=== PATIENT | male | born 1945 | race Two or more races ===

== ENCOUNTER 2017-02-09 07:18 | Inpatient (IN) | payer MEDICARE ==
[~2017-02-09] VITALS: Ht 172.7 cm; Wt 85.5 kg
[2017-02-09] MEDS ORDERED: ASPI325T PO (14:24)
[2017-02-09] MEDS ORDERED: GLIP5TAB8 PO (14:24)
[2017-02-09] MEDS ORDERED: LOVA20TA PO (14:24)
[2017-02-09] MEDS ORDERED: LISI20TA3 PO (14:24)
[2017-02-09] MEDS ORDERED: CLON0.1T PO (14:24)
[2017-02-09] MEDS ORDERED: METF1000 PO (14:24)
[2017-02-09] MEDS ORDERED: NOVONP2 SQ ×2 (14:27)
[2017-02-16] MEDS ORDERED: CINN500C12 (11:11)
[2017-02-16] MEDS ORDERED: FISH1000 PO (11:11)
[2017-02-16] MEDS ORDERED: SODIUM CHLORID 0.9% 500 ML IV PRN (11:15)
[2017-02-16] MEDS ORDERED: METOPROLOL TARTRATE 25 MG TAB PO PRN (11:15)
[2017-02-16] MEDS ORDERED: METRONIDAZOLE 500 MG/100 ML ISONTONIC SOLN IV SCH (11:15)
[2017-02-16] MEDS ORDERED: ALVIMOPAN 12 MG CAPSULE - On Call PO SCH (11:15)
[2017-02-16] MEDS ORDERED: ceFAZolin 1,000 MG/NS 100 ML IV SCH ×2 (11:15)
[2017-02-16] MEDS ORDERED: POVIDONE IODINE 5% (ANTISEPSIS KIT) 4 APPLICATIONS EACH NARE PRN (11:15)
[2017-02-16] MEDS ORDERED: INSULIN HUMAN REGULAR 1,000 UNITS/10 ML VIAL SQ PRN (11:15)
[2017-02-16] MEDS ORDERED: LACTATED RINGER'S 1000 ML IV PRN (11:15)
[2017-02-16] MEDS ORDERED: CHLORHEXIDINE GLUCONATE 2 % 1 PACK (2 CLOTHS) TOPICAL PRN (11:15)
[2017-02-16 11:17] VITALS: BP 157/90; PULSE 98; RESP 18; TEMP 98.2; O2SAT 97
--- NOTE | 2017-02-16 11:32 | PD.HP.UP ---
H&P Update Note The Pre-Admit History and Physical Examination regarding the above named patient was reviewed (including, but not limited to, vital signs, heart, lungs, co-morbid conditions), and upon re-examination it is noted that: the patient's condition has not significantly changed since the last examination. Miguel Burch MD Feb 16, 2017 11:32
[2017-02-16] MEDS ORDERED: KETAMINE HCL 500 MG/5 ML VIAL IV ONE (12:00)
[2017-02-16] MEDS ORDERED: PROPOFOL 200 MG/20 ML AMP IV ONE (12:00)
[2017-02-16] MEDS ORDERED: LACTATED RINGER'S 1000 ML INJ 2,000 ML IV ONE (12:00)
[2017-02-16] MEDS ORDERED: ONDANSETRON HCL 4 MG/2 ML VIAL IV PUSH ONE (12:00)
[2017-02-16] MEDS ORDERED: ACETAMINOPHEN 1000 MG/100 ML VIAL IV ONE (12:28)
[2017-02-16] MEDS ORDERED: SUGAMMADEX SODIUM 200 MG/2 ML VIAL IV PUSH ONE ×2 (12:29)
[2017-02-16] MEDS ORDERED: HYDROmorphone HCL PF 2 MG/ML VIAL ONE (12:29)
--- NOTE | 2017-02-16 12:50 | PD.WCN.NOT ---
Wound Consult Description: Vocera message from Dr Burch requesting marking patient for colostomy. Communicated with: LAVERN Sawyer Mariya Patient Dr Burch Recommendation: Site marked is upper quadrant on left abdomen, however recommended to Dr Burch that stoma be placed distally from this marked area further under rib cage. Difficult marking due to patients protuberant abdomen, with creases while sitting, small infraumbilical roll, and coughing was of little help in locating rectus muscles. Additional Information: Patient seen prior to surgery on Ostomy Surgeon: Miguel Burch MD Date of Surgery: Feb 16, 2017 Educated patient on: Patient and Mariya were educated on the marking site chosen, however if physician was not able to place ostomy where music writer marked, physician would decide on the placement. Additional information Patient seen on with Mariya at bedside for assessment of patients abdomen laying, coughing, sitting, and standing. Marking on left upper abdomen after speaking with patient and assessing patients abdomen, lifestyle, hobbies, clothing, etc. Patient states that his " will be taking care of the bag, if it wasn't for her I wouldn't be here, because I feel great". Elmira Terry [facility] Feb 16, 2017 12:50
[2017-02-16] MEDS ORDERED: ACETAMINOPHEN/HYDROcodone 325 MG/5 MG TAB PO PRN (15:45)
[2017-02-16] MEDS ORDERED: SODIUM CHLORIDE 0.9% FLUSH 5 ML FLUSH IVF PRN (15:45)
[2017-02-16] MEDS ORDERED: ENALAPRILAT 2.5 MG/2 ML VIAL IV PRN (15:45)
[2017-02-16] MEDS ORDERED: KETOROLAC TROMETHAMINE 30 MG/ML (IVP) VIAL IVP PRN (15:45)
[2017-02-16] MEDS ORDERED: ACETAMINOPHEN 325 MG TAB PO PRN (15:45)
[2017-02-16] MEDS ORDERED: NALOXONE HCL 0.4 MG/ML AMP IV PRN (15:45)
[2017-02-16] MEDS ORDERED: POTASSIUM CHLOR 40 MEQ PREMIX 100 ML IV PRN (15:45)
[2017-02-16] MEDS ORDERED: Post-op Orders (for Pharmacy) MISC XX ONE (15:45)
[2017-02-16] MEDS ORDERED: BENZOCAINE 6 MG/MENTHOL 10 MG LOZENGE BUCCAL PRN (15:45)
[2017-02-16] MEDS ORDERED: ENALAPRILAT 1.25 MG/ML VIAL IV PRN (15:45)
[2017-02-16] MEDS ORDERED: POTASSIUM CHLOR 20 MEQ PREMIX 100 ML IV PRN (15:45)
[2017-02-16] MEDS ORDERED: ONDANSETRON HCL 4 MG/2 ML VIAL IV PRN (15:45)
[2017-02-16] MEDS ORDERED: MIDAZOLAM HCL 2 MG/2 ML VIAL ONE (15:52)
[2017-02-16] MEDS ORDERED: fentaNYL CITRATE 250 MCG/5 ML AMP ONE (15:53)
[2017-02-16] MEDS: D5-NS + KCL 20 MEQ INJ 1,000 ML IV SCH (16:00)
[2017-02-16] MEDS: MORPHINE SULFATE 30 MG/30 ML PCA IV SCH (16:15)
[2017-02-16] MEDS ORDERED: *morphine SULFATE 8 MG/ML PERIprocedure ONLY ONE ×2 (16:26→16:44)
[2017-02-16] MEDS: metroNIDAZOLE 500 MG INJ 100 ML IV SCH (20:59)
[2017-02-16] MEDS: METOCLOPRAMIDE HCL 10 MG/2 ML VIAL IVS SCH (20:59)
[2017-02-16] MEDS: SODIUM CHLORIDE 0.9% FLUSH 5 ML FLUSH IVF SCH (21:00)
[2017-02-16 22:00] VITALS: PULSE 104
[2017-02-16 23:00] VITALS: BP 125/84; PULSE 101; PULSE 94; RESP 18; TEMP 98.2; O2SAT 97
[2017-02-17] VITALS (24 sets, daily range): BP systolic 107–165; BP diastolic 57–99; PULSE 98–138; RESP 18–20; TEMP 97.4–98.7; O2SAT 90–97
[2017-02-17] MEDS ORDERED: diphenhydrAMINE HCL 25 MG CAP PO PRN (00:30)
[2017-02-17] MEDS: D5-NS + KCL 20 MEQ INJ 1,000 ML IV SCH ×4 (03:27→19:45)
[2017-02-17] MEDS: metroNIDAZOLE 500 MG INJ 100 ML IV SCH ×2 (04:40→13:36)
[2017-02-17] MEDS: PCA - TOTAL MG MORPHINE DELIVERED PER SHIFT SCH ×4 (06:00→22:00)
[2017-02-17 07:07] LABS: AUTOMATED NEUTROPHIL # 9.2 TH/MM3 (1.8-7.7); HEMO FLAGS DIFF FINAL; LYMPH % 3.5 % (9.0-44.0); LYMPHOCYTE # 0.4 TH/MM3 (1.0-4.8); MEAN CELL VOLUME 92.8 FL (80.0-100.0); MEAN CORPUSCULAR HGB CONC 33.4 % (32.0-36.0); MONO % 9.4 % (0.0-8.0); NEUT % 87.1 % (16.0-70.0); PLATELET COUNT 178 TH/MM3 (150-450); RED BLOOD COUNT 4.09 MIL/MM3 (4.50-5.90); RED CELL DISTRIBUTION WIDTH 15.5 % (11.6-17.2); WHITE BLOOD COUNT 10.6 TH/MM3 (4.0-11.0)
[2017-02-17 07:30] LABS: BICARBONATE 25.1 MEQ/L (21.0-32.0); POTASSIUM 4.4 MEQ/L (3.5-5.1)
--- NOTE | 2017-02-17 07:42 | HHI.PR ---
Subjective Remarks C/R Surg POD #1 afebnrile, VSS UO good OSBALDO min Objective - Vital Signs Date Time Temp Pulse Resp B/P Pulse Ox O2 Delivery O2 Flow Rate FiO2 02/17/17 06:00 16 02/17/17 05:00 105 02/17/17 04:19 98.1 147/95 96 02/17/17 03:15 Nasal Cannula 2.00 Result Diagram: 02/17/17 0610 02/17/17 0610 Objective Remarks PE alert Abd - soft, stoma pink, wound dry A/P Assessment and Plan Imp: stable post-op OOB decr IVF tx to floor Miguel Burch MD Feb 17, 2017 07:42
--- NOTE | 2017-02-17 07:46 | HHI.FF ---
Face to Face Verification Diagnosis: (1) Rectal cancer Physical Therapy Order: Evaluate and Treat, Improve ambulation, Strength and gait training Home Health Nursing Order: Medical education Signs/symptoms of disease process Wound care and dressing changes Instructions: stoma teaching I have seen patient Tutu Sherwood on 02/17/17. My clinical findings support the need for the requested home health care services because: Ltd mobility - disease progression Deconditioned w/ increased weakness Limited ability to care for self High risk of falls I certify that my clinical findings support that this patient is homebound because: Post-op weakness Unable to use public transportation Miguel Burch MD Feb 17, 2017 07:46
[2017-02-17] MEDS: PANTOPRAZOLE SODIUM 40 MG VIAL IVP SCH (09:00)
[2017-02-17] MEDS: SODIUM CHLORIDE 0.9% FLUSH 5 ML FLUSH IVF SCH ×2 (09:00→19:44)
[2017-02-17] MEDS: ALVIMOPAN 12 MG CAPSULE - Post-op dosing PO SCH ×2 (09:04→19:44)
[2017-02-17] MEDS: PANTOPRAZOLE SOD 40 MG DELAYED RELEASE TAB PO SCH (09:05)
[2017-02-17] MEDS: METOCLOPRAMIDE HCL 10 MG/2 ML VIAL IVS SCH ×2 (09:05→19:44)
[2017-02-17] MEDS: DEXT 5%-NACL 0.9% 1000 ML INJ 1,000 ML IV SCH ×3 (09:07→19:30)
[2017-02-17] MEDS ORDERED: DEXTROSE 50% IN WATER 50 ML VIAL(D50) IV PUSH PRN (10:15)
[2017-02-17] MEDS ORDERED: GLUCAGON 1 MG/ML VIAL OTHER PRN (10:15)
--- NOTE | 2017-02-17 10:53 | PD.WCN.NOT ---
Wound Consult Description: New Ostomy Teaching Post op day #1 Communicated with: Patient Recommendation: Read booklet provided and left at bedside "What to expect after Colostomy surgery" Additional Information: Patient seen on [facility] for Ostomy teaching and Colostomy kit provided. Ostomy Type: Colostomy Surgeon: Miguel Burch MD Date of Surgery: Feb 16, 2017 Complete: Starter kit, Education materials Educated patient on: Reading booklet provided regarding new Colostomy Additional information Patient seen on [facility] for Ostomy assessment and measuring of stoma. Stoma is noted on the left upper mid abdomen and measuring 1 3/4". Stoma is red, round, moist, and edematous with lumen noted to center. Pouch is noted with ~ 100ml of brown liquid effluent. Appliance is in place and secured without leaks noted. Patient is up to chair and sleeping on and off during assessment and teaching. Kit left at bedside with patient sticker placed on left lower corner on outside of box. Follow up with patient Tuesday this week. [facility] Feb 17, 2017 10:53
[2017-02-17] MEDS: LOW DOSE INSULIN NOVOLIN REGULAR SUPPLEMENTAL SCALE SQ SCH ×3 (11:00→21:00)
[2017-02-17] MEDS ORDERED: NON-FORMULARY DRUG (Lisinopril-Hctz 1 TAB) PO SCH (12:15)
[2017-02-17] MEDS: HYDROCHLOROTHIAZIDE 25 MG TAB PO SCH (12:42)
[2017-02-17] MEDS: LISINOPRIL 20 MG TAB PO SCH (12:42)
[2017-02-17] MEDS ORDERED: ACETAMINOPHEN 1000 MG/100 ML VIAL IV PRN (14:30)
[2017-02-17] MEDS: MORPHINE SULFATE 30 MG/30 ML PCA IV SCH (15:22)
[2017-02-17] MEDS: cloNIDine HCL 0.1 MG TAB PO SCH (21:00)
[2017-02-17] MEDS ORDERED: ALVIMOPAN 12 MG CAPSULE PO SCH (21:00)
[2017-02-18] VITALS (10 sets, daily range): BP systolic 114–134; BP diastolic 68–83; PULSE 105–126; RESP 16–18; TEMP 95.9–98.8; O2SAT 90–95
[2017-02-18] MEDS: DEXT 5%-NACL 0.9% 1000 ML INJ 1,000 ML IV SCH ×3 (02:58→16:42)
[2017-02-18] MEDS: LOW DOSE INSULIN NOVOLIN REGULAR SUPPLEMENTAL SCALE SQ SCH ×4 (05:32→22:58)
[2017-02-18] MEDS: PCA - TOTAL MG MORPHINE DELIVERED PER SHIFT SCH ×3 (06:00→22:00)
[2017-02-18 07:11] LABS: BASOPHIL % 0.2 % (0.0-2.0); EOSINOPHIL % 0.1 % (0.0-4.0); HEMATOCRIT 34.5 % (39.0-51.0); HEMO FLAGS DIFF FINAL; LYMPH % 4.6 % (9.0-44.0); LYMPHOCYTE # 0.5 TH/MM3 (1.0-4.8); MEAN CELL VOLUME 92.3 FL (80.0-100.0); MEAN CORPUSCULAR HEMOGLOBIN 30.5 PG (27.0-34.0); NEUT % 84.1 % (16.0-70.0); PLATELET COUNT 163 TH/MM3 (150-450); RED BLOOD COUNT 3.73 MIL/MM3 (4.50-5.90); RED CELL DISTRIBUTION WIDTH 15.4 % (11.6-17.2); WHITE BLOOD COUNT 11.9 TH/MM3 (4.0-11.0)
[2017-02-18 07:32] LABS: BICARBONATE 28.7 MEQ/L (21.0-32.0)
[2017-02-18] MEDS: SODIUM CHLORIDE 0.9% FLUSH 5 ML FLUSH IVF SCH ×2 (09:00→21:00)
[2017-02-18] MEDS: PANTOPRAZOLE SOD 40 MG DELAYED RELEASE TAB PO SCH (09:00)
[2017-02-18] MEDS: HYDROCHLOROTHIAZIDE 25 MG TAB PO SCH (09:27)
[2017-02-18] MEDS: LISINOPRIL 20 MG TAB PO SCH (09:27)
[2017-02-18] MEDS: PANTOPRAZOLE SODIUM 40 MG VIAL IVP SCH (09:28)
[2017-02-18] MEDS: ALVIMOPAN 12 MG CAPSULE - Post-op dosing PO SCH ×2 (09:28→22:48)
[2017-02-18] MEDS: METOCLOPRAMIDE HCL 10 MG/2 ML VIAL IVS SCH ×2 (09:28→22:48)
--- NOTE | 2017-02-18 10:30 | PD.WCN.NOT ---
Wound Consult Description: New Ostomy Teaching Post op day #2 Communicated with: Patient LAVERN Reyes Recommendation: Read booklet provided and left at bedside "What to expect after Colostomy surgery Additional Information: Patient seen on for new ostomy teaching. Patient states that his read the booklet left for him to read yesterday. Patient states that his " will be in later today and she already knows how to take care it". It was explained to the patient that senior underwriter would like to teach both him and his how to remove the appliance and assess the peristomal skin during the barrier change prior to applying a new barrier and pouch. Patient reluctant to participate in discussion during teaching and changes the subject. Patient was asked if there was a better time for teaching and discussion at which time patient says he intends to have his here, since "she is the one that will be taking care of that". LAVERN Reyes was informed of the patients reluctance to learn at this time. Ostomy Type: Colostomy Surgeon: Miguel Burch MD Date of Surgery: Feb 16, 2017 Complete: Starter kit, Education materials Educated patient on: Stoma, output of stoma, appearance and size of stoma, when to empty the pouch of stool. Additional information Stoma noted to left mid upper abdomen is round, red, moist, edematous, functioning with mucus and brown liquid effluent noted in pouch that was emptied (~130ml). Stoma is measuring 2" with lumen in center/positioned towards 9 o'clock. Mucocutaneous junction and peristomal skin is not visualized at this time during assessment. Patient stated that the light in here was making him hot and urging me to speed up this process. Patient seems to be in denial at this time, not looking at his abdomen and evading questions, not participating in discussions regarding his surgery or the ileostomy appliance. LAVERN Reyes was notified that if patient is discharged this weekend that the needs to be shown how to change appliance, open, close, and empty pouch. Patient is to go [facility] with [facility]. [facility] Feb 18, 2017 10[facility]30
[2017-02-18] MEDS: MORPHINE SULFATE 30 MG/30 ML PCA IV SCH (10:46)
[2017-02-18] MEDS: D5-NS + KCL 20 MEQ INJ 1,000 ML IV SCH (13:00)
--- NOTE | 2017-02-18 14:27 | PD.WCN.NOT ---
Wound Consult Description: New Ostomy Teaching Post op day #2 Communicated with: Mariya, Patient LAVERN Reyes Recommendation: Read booklet provided "What to expect after Colostomy surgery" Additional Information: Patient and patients , Mariya, seen on [address] [place] [address] for ostomy teaching. Ostomy Type: Colostomy Surgeon: Miguel Burch MD Date of Surgery: Feb 16, 2017 Complete: Starter kit, Education materials Educated patient on: Ambulating, and getting rest. Patient is still on ice chips and stating he is ready to have some broth. Additional information Patient seen on [address] [place] [address] for ostomy teaching. Patient is at bedside and very knowledgeable about ostomies due to her background in [employer] care. Mariya states that she will be taking care of the colostomy herself and states that she will read the booklet provided. We went over different appliances, when to change the barrier and pouch, skin care around the stoma, how to open the pouch, close the pouch, and empty the contents of the pouch. All contents of the supplies in the colostomy kit were discussed. Patient is measuring 1 3/4 " therefore appliances in 2 1/4" will be ordered for patient to go home with. Consent obtained for [facility] to send kit to home address. Patient does not wish to discuss the stoma or the bag and refers automotive service writer to his . [facility]ira Terry [facility] Feb 18, 2017 14:27
--- NOTE | 2017-02-18 16:28 | HHI.PR ---
Subjective Remarks C/R Surg POD #2 afebnrile, VSS UO good OSBALDO min stoma functioning Objective - Vital Signs Date Time Temp Pulse Resp B/P Pulse Ox O2 Delivery O2 Flow Rate FiO2 02/18/17 14:00 16 02/18/17 12:18 92 Nasal Cannula 3.00 02/18/17 12:00 96.2 125 122/68 02/17/17 15:13 21 Result Diagram: 02/18/17 0409 02/18/17 0409 Objective Remarks PE alert Abd - soft, stoma pink, wound dry A/P Assessment and Plan Imp: OOB decr IVF start PO Miguel Burch MD Feb 18, 2017 16:28
[2017-02-18] MEDS: cloNIDine HCL 0.1 MG TAB PO SCH (22:48)
[2017-02-19] VITALS (9 sets, daily range): BP systolic 120–138; BP diastolic 65–79; PULSE 101–121; RESP 17–20; TEMP 96.5–98.9; O2SAT 94–97
[2017-02-19] MEDS: D5-NS + KCL 20 MEQ INJ 1,000 ML IV SCH (02:06)
[2017-02-19] MEDS: DEXT 5%-NACL 0.9% 1000 ML INJ 1,000 ML IV SCH ×2 (02:06→11:30)
[2017-02-19] MEDS: PCA - TOTAL MG MORPHINE DELIVERED PER SHIFT SCH (06:00)
[2017-02-19] MEDS: LOW DOSE INSULIN NOVOLIN REGULAR SUPPLEMENTAL SCALE SQ SCH ×4 (06:16→20:55)
[2017-02-19] MEDS: SODIUM CHLORIDE 0.9% FLUSH 5 ML FLUSH IVF SCH ×2 (09:00→20:51)
[2017-02-19] MEDS: PANTOPRAZOLE SODIUM 40 MG VIAL IVP SCH (09:00)
[2017-02-19] MEDS: HYDROCHLOROTHIAZIDE 25 MG TAB PO SCH (09:42)
[2017-02-19] MEDS: LISINOPRIL 20 MG TAB PO SCH (09:42)
[2017-02-19] MEDS: PANTOPRAZOLE SOD 40 MG DELAYED RELEASE TAB PO SCH (09:42)
[2017-02-19] MEDS: ALVIMOPAN 12 MG CAPSULE - Post-op dosing PO SCH ×2 (09:42→20:50)
[2017-02-19] MEDS: METOCLOPRAMIDE HCL 10 MG/2 ML VIAL IVS SCH ×2 (09:43→20:51)
--- NOTE | 2017-02-19 12:30 | HHI.PR ---
Subjective Remarks Sitting in chair. Hungry. No N or V. Stooling Objective Vital Signs Date Time Temp Pulse Resp B/P Pulse Ox O2 Delivery O2 Flow Rate FiO2 02/19/17 09:44 17 02/19/17 09:27 96 Nasal Cannula 3.00 02/19/17 08:00 97.4 114 19 120/78 97 02/19/17 06:00 18 02/19/17 04:00 96.5 101 18 127/77 95 02/19/17 00:00 97.3 103 18 138/77 95 02/18/17 22:00 18 02/18/17 21:45 18 02/18/17 20:00 98.5 123 18 129/83 95 02/18/17 17:28 94 Nasal Cannula 3.00 02/18/17 16:00 98.8 105 18 134/78 94 02/18/17 14:00 16 I/O 02/18/17 02/18/17 02/18/17 02/19/17 02/19/17 02/19/17 06:59 14:59 22:59 06:59 14:59 22:59 Intake Total 676 ml 754 ml 581 ml 552 ml Output Total 365 ml 700 ml 1045 ml 560 ml Balance 311 ml 54 ml -464 ml -8 ml Intake Oral 0 ml IV Total 676 ml 754 ml 581 ml 552 ml Output Urine Total 350 ml 550 ml 1000 ml 500 ml Stool Total 100 ml Drainage Total 15 ml 50 ml 45 ml 60 ml Result Diagram: 02/18/17 0409 02/18/17 040 Objective Remarks VS-S Abd: flat,wound clean. Colostomy appliance dislodged Assessment and Plan Assessment and Plan Stable POD#3 Start diet,D/C gomez, Ambulate, Replace stoma appliance. Decrease IVs Dev Fulton MD Feb 19, 2017 12:30
--- NOTE | 2017-02-19 14:02 | MP ---
cc: YANELI DUMONT M.D. DATE OF SURGERY: 02/19/2017. PREOPERATIVE DIAGNOSIS: Rectal cancer. POSTOPERATIVE DIAGNOSIS: Rectal cancer. OPERATIVE PROCEDURE PERFORMED: Exploratory laparotomy with abdominal perineal resection, end colostomy and omental flap. SURGEON: Yaneli Dumont MD. IT SUPPORT CONSULTANT: Gustavo Cedeno MD. DESCRIPTION OF THE PROCEDURE IN DETAIL: The patient was placed in the supine position. After adequate general anesthesia, his legs were placed in the universal stirrups and supported appropriately. The abdomen and perineum were then prepped with Betadine solution and draped in the usual sterile fashion. With Dr. Cedeno's assistance, the abdomen was opened through a midline incision dividing the rectus. Exploration revealed the colon to be somewhat redundant in the sigmoid section but no palpable masses were noted. The small bowel was run from ligament of Treitz down to the ileocecal valve and felt to be normal. The liver had no masses. The gallbladder was pretty unremarkable. The stomach and duodenum were normal. The great vessels were of normal caliber and only slightly calcified First, the sigmoid colon was mobilized medially by dividing along the white line of Toldt. The left ureter was identified and carefully preserved. Dissection then proceeded up the left gutter freeing the colon off the retroperitoneum toward the splenic flexure. The right retroperitoneal space was opened and the bowel dissected off the presacral fascia preserving the right ureter. The pedicle for the superior hemorrhoidal vessels was identified and divided between Kellys obtaining hemostasis with Vicryl ties. Dissection then proceeded down the presacral space down to the pelvic floor trying to preserve the presacral nerves. The cul-de-sac was opened and the bowel dissected off the prostatic capsule taking the lateral rectal stalks with electrocautery. After complete mobilization down to the pelvic floor, there was definite thickening and induration consistent with a known rectal cancer. No extra luminal cancer or tumor was noted. After complete mobilization to the pelvic floor, Dr. Cedeno went to the perineal aspect of the patient and made an elliptical incision around the anal sphincter entering the ischiorectal spaces on both sides and completing the proctectomy entering the pelvis at the tip of the coccyx and then removing the remaining attachments to the pelvic floor with electrocautery. The bowel was divided in the sigmoid colon using the KRISTOFER stapling device and the mesentery taken between Kellys and obtaining hemostasis with Vicryl ties. The specimen was then removed through the perineal aspect of the dissection. The pelvis and perineum were then irrigated copiously with normal saline. Adequate hemostasis achieved. Dr. Cedeno closed the pelvic floor muscles and subcutaneous tissues with interrupted Vicryl sutures and also closed the skin with interrupted subcutaneous sutures of 3-0 Vicryl and then surgical keyur on the skin. Finally circular stab wound was created in the left midabdomen going through the subcutaneous tissue and opening the rectus fascia and splitting the rectus muscles entering the peritoneal cavity. The end of the sigmoid colon was brought up through the stab wound without tension and with good blood supply. The omentum was taken off the transverse colon and passed down the left gutter into the pelvis to fill the pelvic space. A Jun-Yoder drain was also placed into the presacral space and brought out through stab wound in the right lower quadrant and secured to the skin with a nylon suture. The abdomen was again irrigated copiously with normal saline. Adequate hemostasis achieved. The midline incision was closed anatomically using a running #1 PDS suture to reapproximate the midline fascia. The subcutaneous tissue was irrigated copiously and the skin closed with a running subcuticular Vicryl suture. The wound area was washed with normal saline and dried, sterile dressing of Telfa and gauze applied. Finally, the KRISTOFER staple line was removed from the end of the colostomy and the stoma matured in the usual Ashley fashion by placing a row of interrupted chromic catgut sutures around the circumference. At completion, the stoma did appear to be viable and was patent through the fascial level. A new colostomy appliance fitted over the newly formed colostomy. The patient tolerated the procedure quite well and was brought to the recovery room in stable condition. The sponge and needle counts were correct at the end of the procedure. At the end of the procedure, the specimen was opened revealing a very deep irregular ulceration consistent with the tumor bed just above the dentate line, which was the site of previous tumor which had been treated preoperatively with radiation and chemotherapy. MD EDU Daigle/MANNY /11:30 PM /1:50 PM
[2017-02-19] MEDS: ACETAMINOPHEN/HYDROcodone 325 MG/5 MG TAB PO PRN (16:44)
[2017-02-19] MEDS: cloNIDine HCL 0.1 MG TAB PO SCH (20:50)
[2017-02-20 00:03] VITALS: BP 131/71; PULSE 103; RESP 19; TEMP 97.3; O2SAT 92
[2017-02-20] MEDS: ACETAMINOPHEN/HYDROcodone 325 MG/5 MG TAB PO PRN ×4 (01:02→20:52)
[2017-02-20] MEDS: LOW DOSE INSULIN NOVOLIN REGULAR SUPPLEMENTAL SCALE SQ SCH ×4 (06:23→20:52)
[2017-02-20 08:00] VITALS: BP 121/75; PULSE 103; RESP 20; TEMP 95.6; O2SAT 95
[2017-02-20 08:15] VITALS: O2SAT 98
[2017-02-20] MEDS: HYDROCHLOROTHIAZIDE 25 MG TAB PO SCH (08:34)
[2017-02-20] MEDS: METOCLOPRAMIDE HCL 10 MG/2 ML VIAL IVS SCH ×2 (08:34→20:45)
[2017-02-20] MEDS: LISINOPRIL 20 MG TAB PO SCH (08:34)
[2017-02-20] MEDS: PANTOPRAZOLE SOD 40 MG DELAYED RELEASE TAB PO SCH (08:35)
[2017-02-20] MEDS: ALVIMOPAN 12 MG CAPSULE - Post-op dosing PO SCH ×2 (08:35→20:45)
[2017-02-20] MEDS: PANTOPRAZOLE SODIUM 40 MG VIAL IVP SCH (08:35)
[2017-02-20] MEDS: SODIUM CHLORIDE 0.9% FLUSH 5 ML FLUSH IVF SCH ×2 (08:39→20:45)
--- NOTE | 2017-02-20 10:57 | HHI.PR ---
Subjective Remarks Sitting in chair. Tolerating diet. Colostomy bag loose again Objective Vital Signs Date Time Temp Pulse Resp B/P Pulse Ox O2 Delivery O2 Flow Rate FiO2 02/20/17 08:15 98 21 02/20/17 00:03 97.3 103 19 131/71 92 02/19/17 20:05 94 21 02/19/17 20:00 98.9 107 19 130/65 95 02/19/17 16:00 97.8 121 20 128/79 94 02/19/17 12:00 97.2 119 18 127/69 94 I/O 02/19/17 02/19/17 02/19/17 02/20/17 02/20/17 02/20/17 07:00 15:00 23:00 07:00 15:00 23:00 Intake Total 552 ml 1350 ml 340 ml 240 ml Output Total 560 ml 635 ml 800 ml 1150 ml Balance -8 ml 715 ml -460 ml -910 ml Intake Oral 800 ml 240 ml 240 ml IV Total 552 ml 550 ml 100 ml 0 ml Output Urine Total 500 ml 575 ml 800 ml 700 ml Stool Total 400 ml Drainage Total 60 ml 60 ml 50 ml # Bowel Movements 0 Result Diagram: 02/18/17 0409 02/18/17 0409 Objective Remarks VS-S Abd: flat,wound clean. Colostomy appliance dislodged again I&Os-OK Assessment and Plan Assessment and Plan Stable POD#4 Ambulate, Replace stoma appliance. Regular diet. Possible D/C tomorrow;? with or wiyhout drain Dev Fulton MD Feb 20, 2017 10:57
[2017-02-20 12:00] VITALS: BP 130/73; PULSE 107; RESP 18; TEMP 96.7; O2SAT 97
[2017-02-20] MEDS: D5-NS + KCL 20 MEQ INJ 1,000 ML IV SCH (15:31)
[2017-02-20 16:00] VITALS: BP 119/66; PULSE 98; RESP 20; TEMP 97; O2SAT 95
[2017-02-20 20:00] VITALS: BP 121/75; PULSE 92; RESP 19; TEMP 97.3; O2SAT 93
[2017-02-20] MEDS: cloNIDine HCL 0.1 MG TAB PO SCH (20:45)
[2017-02-21] VITALS: BP 109/63; PULSE 85; RESP 19; TEMP 97.8; O2SAT 93
[2017-02-21] MEDS: ACETAMINOPHEN/HYDROcodone 325 MG/5 MG TAB PO PRN (04:56)
[2017-02-21] MEDS: LOW DOSE INSULIN NOVOLIN REGULAR SUPPLEMENTAL SCALE SQ SCH ×2 (05:02→12:21)
[2017-02-21 08:00] VITALS: BP 112/58; PULSE 102; RESP 16; TEMP 96.8; O2SAT 93
[2017-02-21] MEDS ORDERED: METOCLOPRAMIDE HCL 10 MG/2 ML VIAL IVS PRN (08:15)
[2017-02-21] MEDS: HYDROCHLOROTHIAZIDE 25 MG TAB PO SCH (08:52)
[2017-02-21] MEDS: PANTOPRAZOLE SOD 40 MG DELAYED RELEASE TAB PO SCH (08:52)
[2017-02-21] MEDS: PANTOPRAZOLE SODIUM 40 MG VIAL IVP SCH (08:53)
[2017-02-21] MEDS: LISINOPRIL 20 MG TAB PO SCH (08:53)
[2017-02-21] MEDS: SODIUM CHLORIDE 0.9% FLUSH 5 ML FLUSH IVF SCH (08:54)
[2017-02-21] MEDS: ALVIMOPAN 12 MG CAPSULE - Post-op dosing PO SCH (08:58)
[2017-02-21 12:00] VITALS: BP 124/63; PULSE 102; RESP 16; TEMP 96.7; O2SAT 93
[2017-02-21 12:49] VITALS: O2SAT 95
== END 2017-02-21 13:43 | disposition home health service (06) | DRG 331 ==
LOC: HSDI 02-16 10:18 → HCIN 02-16 21:43 → N07A 02-17 17:51
PROVIDERS: ADMIT Colon & Rectal Surgery; ATTEND Colon & Rectal Surgery
PROC: 0DBP0ZZ Excision of Rectum, Open Approach (ICD-10-PCS; principal; 2017-02-17)
PROC: 0D1N0Z4 Bypass Sigmoid Colon to Cutaneous, Open Approach (ICD-10-PCS; 2017-02-17)
PROC: 0WUF07Z Supplement Abdominal Wall with Autologous Tissue Substitute, Open Approach (ICD-10-PCS; 2017-02-17)
PROC: 0DBN0ZZ Excision of Sigmoid Colon, Open Approach (ICD-10-PCS; 2017-02-17)
DX: C20 Malignant neoplasm of rectum (principal)
CPT/HCPCS: 80048; 82948; 85025; 86850; 86900; 86901; 88309; 94150; C9113; J0131; J0690; J1170; J2250; J2270; J2405; J2765; J3010; J3480; J7120

== ENCOUNTER → 2017-02-09 | Outpatient (CLI) | payer MEDICARE ==
[~2017-02-09] MED LIST: ASPI325T PO; ASPI81 PO; CINN500C12; CLON0.1T PO; FISH1000 PO; GLIP5 PO; GLIP5TAB8 PO; GLUCTAB PO; HYDR-2768 PO; LISI20TA3 PO; LOVA1TAB47 PO; LOVA20TA PO; METF1000 PO; NOVONP2 SQ; PRIN20TA2 PO; TEMA7.5C9 PO
[2017-02-09 11:37] LABS: AUTOMATED NEUTROPHIL # 5.4 TH/MM3 (1.8-7.7); BASOPHIL % 0.3 % (0.0-2.0); EOSINOPHIL # 0.4 TH/MM3 (0-0.4); EOSINOPHIL % 5.5 % (0.0-4.0); HEMATOCRIT 40.8 % (39.0-51.0); HEMO FLAGS DIFF FINAL; LYMPH % 10.4 % (9.0-44.0); LYMPHOCYTE # 0.8 TH/MM3 (1.0-4.8); MEAN CELL VOLUME 92.2 FL (80.0-100.0); MEAN CORPUSCULAR HEMOGLOBIN 30.7 PG (27.0-34.0); MEAN CORPUSCULAR HGB CONC 33.3 % (32.0-36.0); MONO % 8.8 % (0.0-8.0); PLATELET COUNT 166 TH/MM3 (150-450); RED BLOOD COUNT 4.43 MIL/MM3 (4.50-5.90); RED CELL DISTRIBUTION WIDTH 16.1 % (11.6-17.2); WHITE BLOOD COUNT 7.2 TH/MM3 (4.0-11.0)
[2017-02-09 11:47] LABS: APTT (PATIENT) 26.5 SEC (24.3-30.1)
--- NOTE | 2017-02-09 11:53 | EKG ---
Date Performed: 02/09/2017 Time Performed: 10:49:46 PTAGE: 71 years EKG: Sinus rhythm NORMAL ECG NO PREVIOUS TRACING DOCTOR: Cameron Calvillo Interpretating Date/Time 02/09/2017 11:52:09
[2017-02-09 12:12] LABS: ALKALINE PHOSPHATASE 59 U/L (45-117); TOTAL BILIRUBIN ADULT 0.5 MG/DL (0.2-1.0)
[2017-02-09 12:14] LABS: ALT (GPT) 23 U/L (12-78); ANION GAP 9 MEQ/L (5-15); AST (GOT) 17 U/L (15-37); BICARBONATE 28.1 MEQ/L (21.0-32.0); BLOOD UREA NITROGEN 22 MG/DL (7-18); CHLORIDE 105 MEQ/L (98-107); GLOMERULAR FILTRATION RATE 89 ML/MIN (>89); GLUCOSE,FASTING 90 MG/DL (74-99); SODIUM (NA) 142 MEQ/L (136-145)
[2017-02-09 12:32] LABS: BLOOD, URINE NEG (NEG); GLUCOSE,URINE NEG (NEG); KETONE, URINE NEG (NEG); NITRITE,URINE NEG (NEG); PH, URINE 6.5 (5.0-8.5); URINE COLOR YELLOW (YELLW/STRAW)
[2017-02-09 12:36] LABS: COMMENT (UR) CULT NOT INDICATED; CULTURE IF INDICATED CULT NOT INDICATED
== END ==
LOC: CPRE 10:07
PROVIDERS: ATTEND Colon & Rectal Surgery
DX: Z01.810 Encounter for preprocedural cardiovascular examination (principal); Z01.812 Encounter for preprocedural laboratory examination; C20 Malignant neoplasm of rectum
CPT/HCPCS: 36415; 80053; 81001; 82378; 85025; 85610; 85730; 93005